=== PATIENT | female | born 1960 | race Caucasian/White ===

== ENCOUNTER 2017-04-30 19:36 | Observation (INO) | payer OTHER ==
--- NOTE | ~2017-04-30 | HP ---
History And Physical [place] [id number] [facility] [place]. [address] NAME: DAMON CALLES : 60 STATUS : ADM Wallace PAT#: [id number] AGE: 56 ADM/REG DATE : 04/30/17 MR#: [id number] REPORT SERV DATE: 05/01/17 DICTATED BY: DATE: REPORT STATUS : Draft TRANSCRIBED BY: MODL DATE: 05/01/17 DATE OF ADMISSION: 04/30/2017 HISTORY OF PRESENT ILLNESS: This is a very pleasant 56-year-old white female without any cardiac history, who presented to the ER yesterday around 6:30 p.m. due to left shoulder blade pain that radiated to her left chest and left arm while she was sitting. She reports the chest pain was an 8/10 at that time and that the pain went throughout her entire chest area and did not actually subside completely, it went down to a 2/10. The patient does report that during her event of the chest pain she did have some nausea and diaphoresis that occurred. She reports that it felt like "I thought I pulled a muscle." The patient has denied any shortness of breath, vomiting, lightheadedness, or chest pressure during her event as well as today. The patient reports that recently she had bronchitis about two to three weeks ago, and she received steroid shot at that time and also was on antibiotics, she currently is not on anymore. The patient denies any personal history of myocardial infarction, stroke, DVT, or pulmonary embolus. The patient denies any recent fever or chills. No palpitations. No syncopal episodes. Denies PND or orthopnea. PAST MEDICAL HISTORY: Bronchitis two to three weeks ago. PAST SURGICAL HISTORY: Tubal ligation. SOCIAL HISTORY: She is a java web application developer and she has an exercise regimen, she walks about three miles five times a week, and she does minor floor exercises about three to four times a week. She has been doing that for about a year, and she has not had any recent changes in her ability to exercise. She is and has three children. She smokes about one pack per day and has smoked that much for about 25 years. She occasionally drinks socially. Denies any illicit drug use. FAMILY HISTORY: She denies any cardiovascular health issues for her mother or for her father. REVIEW OF SYSTEMS: A 14-point review of systems was performed, significant for HPI. No other contributory diagnosis was identified. ALLERGIES: NO KNOWN ALLERGIES. HOME MEDICATIONS: Multivitamin without minerals one tablet p.o. daily. PHYSICAL EXAMINATION: VITAL SIGNS: 151/71, heart rate 68, temperature 97.0, respirations 16, O2 sat 95% on room air. GENERAL: Cooperative, in no apparent distress. HEENT: Head, normocephalic and anicteric. Normal EOM. PERRLA. No xanthelasma. [facility] History And Physical [address] [address] NAME: DAMON CALLES : 60 STATUS : ADM Wallace PAT#: [id number] AGE: 56 ADM/REG DATE : 04/30/17 MR#: [id number] REPORT SERV DATE: 05/01/17 DICTATED BY: DATE: REPORT STATUS : Draft TRANSCRIBED BY: MODL DATE: 05/01/17 patent. Moist mucous membranes. NECK: Trachea midline. No thyromegaly, JVD, or bruits. RESPIRATORY: Clear to auscultation bilaterally anterior and posterior. Respirations even and unlabored. No wheezes, rhonchi, or crackles. Nonproductive occasional cough that is chronic per the patient. CARDIOVASCULAR: Regular rate and rhythm. No rub or gallop appreciated. No chest wall tenderness to palpation. 1/6 murmur. ABDOMEN: Soft, nontender, nondistended. Normal bowel sounds auscultated throughout. No masses or organomegaly. EXTREMITIES: No peripheral edema. DP/PT and radial pulses palpable bilaterally. No clubbing or cyanosis. SKIN: Warm, dry, and intact. Normal turgor. No pallor or cyanosis. NEURO/PSYCH: Alert, oriented x3 with no acute distress. Affect appropriate to current situation. LABORATORY DATA: Troponins x3 less than 0.02. Sodium 140, potassium 3.9, BUN 15, creatinine 0.60, GFR 118, glucose 104, calcium 8.8, magnesium 2.0. White blood cells 11.0, hemoglobin 12.8, hematocrit 38.1, platelets 254. INR 1.0. Chest x-ray shows no radiographic evidence of acute process, the lungs and pleural spaces are clear. EKG shows sinus rhythm at 61. lunchroom monitor shows sinus rhythm at 64, no ectopy, no pauses, no arrhythmias noted. ASSESSMENT AND PLAN: 1. Atypical chest pain. Troponins x3 have been negative. EKG appears to be normal. Cardiac risk factors are tobacco use. The patient has been observed in the CPOU overnight to rule out myocardial infarction with serial enzymes and serial EKGs. She will be held n.p.o. Today, and we will plan a stress echo. If the stress echo shows no ischemia or low risk, the RN may discharge the patient home and the patient is to follow up with her primary care physician in about a week with all the studies being sent to that office. If anything is suggestive of ischemia, Cardiology referral will be initiated. 2. History of bronchitis. The patient reports her bronchitis flare has resolved. However, she does continue to have a dry chronic cough, which she reports is more than likely due to her tobacco use. I will defer any further treatment or management of cough to the patient's primary care physician. EKS/MODL Celsa Teague APN / [id number] CC: History And Physical [address] [address] NAME: DAMON CALLES : 60 STATUS : ADM Wallace PAT#: [id number] AGE: 56 ADM/REG DATE : 04/30/17 MR#: [id number] REPORT SERV DATE: 05/01/17 DICTATED BY: DATE: REPORT STATUS : Draft TRANSCRIBED BY: MODL DATE: 05/01/17 Evi Forbes, MSN, [employer] Tova Washburn NP
[2017-04-30 20:02] LABS: BASOPHILS 0.3 %; BASOPHILS ABSOLUTE 0.03 10/3/uL (0.0-0.16); EOSINOPHILS 2.5 %; EOSINOPHILS ABSOLUTE 0.27 10/3/uL (0.0-0.53); ER CBC TAT 0 Hrs 03 Mins; HEMATOCRIT 38.1 % (36.0-48.0); HEMOGLOBIN 12.8 g/dL (12.0-16.0); IMMATURE GRANULOCYTES 0.2 %; IMMATURE GRANULOCYTES ABSOLUTE 0.02 10/3/uL (0.0-0.11); LYMPHOCYTES 19.9 %; LYMPHOCYTES ABSOLUTE 2.19 10/3/uL (0.67-4.30); MEAN CORPUS HGB CONC 33.6 g/dL (32.0-36.0); MEAN CORPUSCULAR HEMOGLOB 29.8 pg (26.0-34.0); MEAN CORPUSCULAR VOLUME 88.8 fL (80-100); MEAN PLATELET VOLUME 10.2 fL (9.2-13.0); MONOCYTES 6.4 %; NEUTROPHILS 70.7 %; PLATELET COUNT 254 10/3/uL (150-400); RBC DISTRIBUTION WIDTH 14.5 % (12.0-16.0); RED CELL COUNT 4.29 10/6/uL (4.0-5.6)
[2017-04-30 20:03] LABS: MANUAL DIFF NO %
[2017-04-30 20:10] LABS: PARTIAL THROMBO TIME 30.3 SEC (22.5-37.2)
[2017-04-30 20:18] LABS: BUN (BLOOD UREA NITROGEN) 15 MG/DL (6-23); CALCIUM, SERUM 8.8 MG/DL (8.5-10.4); CHEST PAIN PROFILE TAT 0 Hrs 19 Mins; CHLORIDE, SERUM 107 MMOL/L (96-112); CO2 (CARBON DIOXIDE) 26 MMOL/L (24-34); GFR AFRICAN AMERICAN 118 ML/MIN (>=60); GFR NON AFRICAN AMERICAN 102 ML/MIN (>=60); GLUCOSE, SERUM 104 MG/DL (60-99); POTASSIUM, SERUM 3.9 MMOL/L (3.5-5.3); SODIUM, SERUM 140 MMOL/L (135-148); TROPONIN I <0.02 NG/ML (<0.05)
[2017-04-30] MEDS ORDERED: MULTIVITAMI1 PO (20:50)
== END 2017-05-01 18:01 | disposition home or self-care (01) ==
LOC: ER 19:36 → 5NO 21:19
PROVIDERS: Emergency Medicine
DX: R07.89 Other chest pain (principal); Z98.51 Tubal ligation status; F17.210 Nicotine dependence, cigarettes, uncomplicated; Z79.899 Other long term (current) drug therapy
CPT/HCPCS: 71010; 80048; 81001; 83735; 84484; 85025; 85610; 85730; 93005; 93017; 93306; 93350; 94640; 96374; 96375; 99285; A9270-GY; G0378; J0360; J2930